=== PATIENT | male | born 1945 | race Caucasian/White ===

== ENCOUNTER 2023-06-13 15:05 | Emergency (ER) | payer MEDICARE, MEDICAID ==
[~2023-06-13] VITALS: Ht 167.6 cm; Wt 101.0 kg
[2023-06-13 15:42] VITALS: BP 197/126; PULSE 103; TEMP 97.8; O2SAT 98
[2023-06-13] MEDS ORDERED: NAPR-56 PO ×2 (17:37→17:51)
[2023-06-13] MEDS ORDERED: ketorolac trometh inj. 60 MG/2 ML VIAL IM ONE (17:50)
[2023-06-13 17:54] VITALS: RESP 18
== END 2023-06-13 18:18 | disposition home or self-care (01) ==
LOC: ER 15:05
DX: S42.202A Unspecified fracture of upper end of left humerus, initial encounter for closed fracture (principal); Z88.2 Allergy status to sulfonamides; W01.0XXA Fall on same level from slipping, tripping and stumbling without subsequent striking against object, initial encounter; Y93.89 Activity, other specified; Y92.89 Other specified places as the place of occurrence of the external cause; Y99.8 Other external cause status
CPT/HCPCS: 29105; 73030; 96372; 99283; J1885; A4565